=== PATIENT | male | born 1955 | race Caucasian/White ===

== ENCOUNTER 2024-10-02 12:39 | Emergency (ER) | payer MEDICAID, MEDICARE ==
[~2024-10-02] VITALS: Ht 188 cm; Wt 109.0 kg
[~2024-10-02 12:39] MED LIST: CLIN-97 PO; FURO-150 PO
[2024-10-02 13:49] VITALS: BP 142/86; PULSE 76; RESP 16; TEMP 98.5; O2SAT 98
== END 2024-10-02 13:50 | disposition home or self-care (01) ==
LOC: ER 12:40
DX: S42.291A Other displaced fracture of upper end of right humerus, initial encounter for closed fracture (principal); I10 Essential (primary) hypertension; Z79.899 Other long term (current) drug therapy; W01.0XXA Fall on same level from slipping, tripping and stumbling without subsequent striking against object, initial encounter; Y93.89 Activity, other specified; Y92.89 Other specified places as the place of occurrence of the external cause; Y99.8 Other external cause status
CPT/HCPCS: 73030; 99283

== ENCOUNTER 2024-12-05 16:04 | Outpatient (CLI) | payer MEDICARE | END 2024-12-05 23:59 | disposition home or self-care (01) | LOC: MRI02 16:04 | PROVIDERS: ATTEND Pediatrics Sports Medicine | DX: S42.254A Nondisplaced fracture of greater tuberosity of right humerus, initial encounter for closed fracture (principal); M25.511 Pain in right shoulder; M25.411 Effusion, right shoulder; M89.311 Hypertrophy of bone, right shoulder; M75.81 Other shoulder lesions, right shoulder; X58.XXXA Exposure to other specified factors, initial encounter; Y93.89 Activity, other specified; Y92.89 Other specified places as the place of occurrence of the external cause; Y99.8 Other external cause status | CPT/HCPCS: 73221 ==